=== PATIENT | female | born 1995 | race Caucasian/White ===

== ENCOUNTER 2018-12-24 01:39 | Inpatient (IN) | payer BC, OTHER ==
[~2018-12-24] VITALS: Ht 157.5 cm; Wt 61.0 kg
[~2018-12-24 01:39] MED LIST: LUTERA1 EACH PO; PRENATAL VITAM1 EACH PO
--- NOTE | 2018-12-24 08:36 | PR ---
[facility] [address] [place], [place] [address] Signed Progress Notes IP Datetime Report Generated by CPChristopher: 12/24/2018 08:35 PROGRESS NOTES: [id number] Impression: Normal progression of labor; Non-reassuring heart rate Procedures: Intrauterine Pressure Catheter; Scalp Electrode; Amnio Infusion Other Plans: continue close observation Informed Consent Obtain: Vaginal Delivery; Risks, Benefits and Alternatives Discussed VITAL SIGNS: [id number] Vital Signs: Reviewed; Within Normal Limits EXAM: [id number] Dilatation: 5.0 Effacement: 90 Station: -2 Uterine Contractions: q 3 min MEMBRANES: [id number] Membrane Status: Ruptured Amniotic Fluid Color: Clear Comments: Recurrent variables. No evidence of cord prolapse. Will place IUPC and begin amnioinfusion. Fetus A: [id number] FHR Baseline: 120 Variability: Minimal - Undetectable to <5bpm Accelerations: 15X15 Decelerations: Variable FHR Category: Category II Presentation: Vertex Comments on Fetus A: recurrent variables but with accels present Fetus B: [id number] Signing Physician: Lori Jaime MD Copies: ~ *Electronically Signed* 12/24/18 0835 LORI JAIME MD PATIENT NAME: CHELSIE RUBALCAVA PROGRESS NOTE DATE OF : [birth year] PHYSICIAN: LORI JAIME MD RPT #: [id number] REPORT IS CONFIDENTIAL AND NOT TO BE RELEASED WITHOUT AUTHORIZATION
--- NOTE | 2018-12-24 09:47 | PR ---
[facility] [address] [facility] [place], [place] [address] Signed Progress Notes IP Datetime Report Generated by CPN: 12/24/2018 09:47 PROGRESS NOTES: [id number] Impression: Normal progression of labor; Reassuring heart rate Procedures: Sterile Vag Exam Plan: Augmentation Other Plans: continue close observation Informed Consent Obtain: Vaginal Delivery; Risks, Benefits and Alternatives Discussed VITAL SIGNS: [id number] Vital Signs: Reviewed; Within Normal Limits EXAM: [id number] Dilatation: 6.0 Effacement: 90 Station: -2 Uterine Contractions: irregular MEMBRANES: [id number] Membrane Status: Ruptured Amniotic Fluid Color: Clear Comments: Good response to subq terb and amnioinfusion but contractions very minimal. Will restart low dose pitocin. Fetus A: [id number] FHR Baseline: 130 Variability: Moderate 6-25bpm Accelerations: 15X15 Decelerations: Variable FHR Category: Category II Presentation: Vertex Comments on Fetus A: good variability and accels Fetus B: [id number] Signing Physician: Lori Jaime MD Copies: ~ *Electronically Signed* 12/24/18 0947 LORI JAIME MD PATIENT NAME: CHELSIE RUBALCAVA PROGRESS NOTE DATE OF : [birth year] PHYSICIAN: LORI JAIME MD RPT #: [id number] REPORT IS CONFIDENTIAL AND NOT TO BE RELEASED WITHOUT AUTHORIZATION
--- NOTE | 2018-12-24 10:44 | PR ---
[facility] [address] [facility] [place], [place] [address] Signed Progress Notes IP Datetime Report Generated by CPN: 12/24/2018 10:44 PROGRESS NOTES: [id number] Impression: Normal progression of labor; Reassuring heart rate Procedures: Sterile Vag Exam Plan: Continue present management Other Plans: continue close observation Informed Consent Obtain: Vaginal Delivery; Risks, Benefits and Alternatives Discussed VITAL SIGNS: [id number] Vital Signs: Reviewed EXAM: [id number] Dilatation: 8.0 Effacement: 90 Station: -2 Uterine Contractions: q 2 to 4 min MEMBRANES: [id number] Membrane Status: Ruptured Amniotic Fluid Color: Clear Comments: Progressing. Good variability and accels though with variable decels. I do feel baby has adequate reserve at this time. Fetus A: [id number] FHR Baseline: 130 Variability: Moderate 6-25bpm Accelerations: 15X15 Decelerations: Variable FHR Category: Category II Presentation: Vertex Comments on Fetus A: occ variable Fetus B: [id number] Signing Physician: Lori Jaime MD Copies: ~ *Electronically Signed* 12/24/18 1044 LORI JAIME MD PATIENT NAME: CHELSIE RUBALCAVA PROGRESS NOTE DATE OF : [birth year] PHYSICIAN: LORI JAIME MD RPT #: [id number] REPORT IS CONFIDENTIAL AND NOT TO BE RELEASED WITHOUT AUTHORIZATION
--- NOTE | 2018-12-24 11:32 | PR ---
[facility] [address] [facility] [place], [place] [address] Signed Progress Notes IP Datetime Report Generated by CPN: 12/24/2018 11:31 PROGRESS NOTES: [id number] Impression: Normal progression of labor Procedures: Scalp Electrode; Sterile Vag Exam Plan: Continue present management Other Plans: continue close observation Informed Consent Obtain: Vaginal Delivery; Risks, Benefits and Alternatives Discussed VITAL SIGNS: [id number] Vital Signs: Reviewed; Within Normal Limits EXAM: [id number] Dilatation: 8.0 Effacement: 90 Station: -1 Uterine Contractions: q 2-4 min MEMBRANES: [id number] Membrane Status: Ruptured Amniotic Fluid Color: Clear Comments: Doing well. FSE replaced as the previous one has had quite a bit of static. Will continue. Fetus A: [id number] FHR Baseline: 120 Variability: Moderate 6-25bpm Accelerations: 15X15 Decelerations: Variable FHR Category: Category II Presentation: Vertex Comments on Fetus A: good variability and accels Fetus B: [id number] Signing Physician: Lori Jaime MD Copies: ~ *Electronically Signed* 12/24/18 1131 LORI JAIME MD PATIENT NAME: CHELSIE RUBALCAVA PROGRESS NOTE DATE OF : [birth year] PHYSICIAN: LORI JAIME MD RPT #: [id number] REPORT IS CONFIDENTIAL AND NOT TO BE RELEASED WITHOUT AUTHORIZATION
--- NOTE | 2018-12-25 07:29 | PR ---
[facility] [address] [facility] [place], [place] [address] Signed PP Progress Notes Datetime Report Generated by CPN: 12/25/2018 07:29 SUBJECTIVE: [id number] Pain: Within normal limits Pain Comments: Murphy just removed. No void yet. Vital Signs: [id number] Vital Signs: Reviewed; Within Normal Limits EXAM: [id number] Cardiovascular: Not Done Respiratory: Not Done Abdomen/Uterus: Abnormal Lochia: Normal Vulva/Perineum: Normal Breasts: Not Done CVA Tenderness: Not Done Extremities: Normal Incision: Not Applicable Progress: Normal Exam Comments: Fundus firm, NT @ U-2. Labs still pending IMPRESSION/PLAN/PROCEDURES: [id number] Impression: Normal progression Plan: Continue present management Procedures: None Progress Notes: Doing well. Will probably D/C home tomorrow am. Signing Physician: Lori Jaime MD Copies: ~ *Electronically Signed* 12/25/18 0729 LORI JAIME MD PATIENT NAME: CHELSIE RUBALCAVA PROGRESS NOTE DATE OF : [birth year] PHYSICIAN: LORI JAIME MD RPT #: [id number] REPORT IS CONFIDENTIAL AND NOT TO BE RELEASED WITHOUT AUTHORIZATION
--- NOTE | 2018-12-26 08:14 | PR ---
[facility] [address] [facility] [place], [place] [address] Signed PP Progress Notes Datetime Report Generated by CPN: 12/26/2018 08:14 SUBJECTIVE: [id number] Pain: Within normal limits Pain Comments: Murphy just removed. No void yet. Vital Signs: [id number] Vital Signs: Reviewed; Within Normal Limits EXAM: [id number] Cardiovascular: Not Done Respiratory: Not Done Abdomen/Uterus: Abnormal Lochia: Normal Vulva/Perineum: Normal Breasts: Not Done CVA Tenderness: Not Done Extremities: Normal Incision: Not Applicable Progress: Normal Exam Comments: Fundus firm, NT @ U-2. H/H 10.7/30.5, WBC 11.7, plat 151k IMPRESSION/PLAN/PROCEDURES: [id number] Impression: Normal progression Plan: Discharge Procedures: None Progress Notes: Doing well. She is ready for D/C. Signing Physician: Lori Jaime MD Copies: ~ *Electronically Signed* 12/26/1814 LORI JAIME MD PATIENT NAME: CHELSIE RUBALCAVA PROGRESS NOTE DATE OF : [birth year] PHYSICIAN: LORI JAIME MD RPT #: [id number] REPORT IS CONFIDENTIAL AND NOT TO BE RELEASED WITHOUT AUTHORIZATION
== END 2018-12-26 11:25 | disposition home or self-care (01) | DRG 806 ==
LOC: FBCO 01:39 → FBC 02:14
PROVIDERS: ADMIT Obstetrics & Gynecology
PROC: 10E0XZZ Delivery of Products of Conception, External Approach (ICD-10-PCS; principal; 2018-12-24)
PROC: 0KQM0ZZ Repair Perineum Muscle, Open Approach (ICD-10-PCS; 2018-12-24)
PROC: 10H07YZ Insertion of Other Device into Products of Conception, Via Natural or Artificial Opening (ICD-10-PCS; 2018-12-24)
PROC: 3E0E7GC Introduction of Other Therapeutic Substance into Products of Conception, Via Natural or Artificial Opening (ICD-10-PCS; 2018-12-24)
PROC: 00HU33Z Insertion of Infusion Device into Spinal Canal, Percutaneous Approach (ICD-10-PCS; 2018-12-24)
PROC: 3E0R3BZ Introduction of Anesthetic Agent into Spinal Canal, Percutaneous Approach (ICD-10-PCS; 2018-12-24)
DX: O42.92 Full-term premature rupture of membranes, unspecified as to length of time between rupture and onset of labor (principal); O70.20 Third degree perineal laceration during delivery, unspecified; Z37.0 Single live birth; Z3A.38 38 weeks gestation of pregnancy; O76 Abnormality in fetal heart rate and rhythm complicating labor and delivery; O69.82X0 Labor and delivery complicated by other cord entanglement, without compression, not applicable or unspecified
CPT/HCPCS: 36415; 82803; 85027; J2590; J3105; J7030; J7120

== ENCOUNTER 2022-03-17 19:19 | Inpatient (IN) | payer BC, OTHER ==
[~2022-03-17] VITALS: Ht 157.5 cm; Wt 64.4 kg
--- NOTE | 2022-03-18 11:09 | PR ---
[facility] [address] [facility] [place], [place] [address] Signed PP Progress Notes Datetime Report Generated by CPN: 03/18/2022 11:09 SUBJECTIVE: [id number] Pain: Within Normal Limits Vital Signs: [id number] Vital Signs: Reviewed; Within Normal Limits EXAM: Ongoing Cardiovascular: Not Done Respiratory: Not Done Abdomen/Uterus: Abnormal Lochia: Normal Vulva/Perineum: Not Done Breasts: Not Done CVA Tenderness: Not Done Extremities: Normal Incision: Not Applicable Progress: Normal Exam Comments: Fundus firm, NT @ U-2. H/H 11.4/33.7, WBC 12.7, plat 187k IMPRESSION/PLAN/PROCEDURES: [id number] Impression: Normal Progression Plan: Discharge Procedures: None Progress Notes: Doing well. She desires discharge later today. Signing Physician: Lori Jaime MD Copies: ~ *Electronically Signed* 03/18/22 1109 LORI JAIME MD PATIENT NAME: CHELSIE TANNER PROGRESS NOTE DATE OF : [birth year] PHYSICIAN: LORI JAIME MD RPT #: [id number] REPORT IS CONFIDENTIAL AND NOT TO BE RELEASED WITHOUT AUTHORIZATION
== END 2022-03-18 20:55 | disposition home or self-care (01) | DRG 807 ==
LOC: FBCO 19:19 → FBC 19:31
PROVIDERS: ADMIT Obstetrics & Gynecology; ATTEND Obstetrics & Gynecology
PROC: 10E0XZZ Delivery of Products of Conception, External Approach (ICD-10-PCS; principal; 2022-03-17)
PROC: 0KQM0ZZ Repair Perineum Muscle, Open Approach (ICD-10-PCS; 2022-03-17)
DX: O62.3 Precipitate labor (principal); Z37.0 Single live birth; Z3A.39 39 weeks gestation of pregnancy; Z20.822 Contact with and (suspected) exposure to COVID-19; O70.1 Second degree perineal laceration during delivery
CPT/HCPCS: 36415; 85027; 86850; 86900; 86901; 87502; A9270; J2590; U0003

== ENCOUNTER 2022-04-14 20:34 | Observation (INO) | payer BC, OTHER ==
[~2022-04-14] VITALS: Ht 152.4 cm; Wt 64.4 kg
--- NOTE | 2022-04-15 01:03 | NUR ---
pt ARRIVED TO [facility] AT THIS TIME, VERBAL REPORT RECEIVED FROM SPIRAL WINDER KHUSHI. pt RESTING IN BED, ORIENTED TO ROOM AND CALL LIGHT IN REACH. SO KLAUS IN ROOM. RUSS, HAND INSERTER OPERATOR COMPELTING ADMISSION.
--- NOTE | 2022-04-15 01:11 | NUR ---
04/15/22 0111 Kimbrough,Karo Chen 0025: PATIENT AWAKE. DENIES PAIN. 0035: PATIENT DOZING OFF AND ON. EASILY AWAKENS TO VOICE. DENIES PAIN. 0049: LAB HERE TO DRAW LABS. 0103: PATIENT TRANSFERRED TO M/S ROOM 109. PATIENT TOLERATED TRANSFER WELL. REPORT GIVEN TO M/S RN.
--- NOTE | 2022-04-15 01:20 | NUR ---
ASSESSMENT COMPLETE, SCHEDULED MEDS GIVEN (SEE EMAR). IV SITE WNL, IV FLUIDS INFUSING DIRECTED. STRINGER BULB IN PLACE TO VAGINA/UTERUS PER REPORT FROM OPEN HEARTH HELPER LISA. VAGINAL PACKING AND NAHED PAD IN PLACE, DR BAILEY IN ROOM AND TALKING TO pt AND pt's SPOUSE. NO VAGINAL BLEEDING NOTED TO NAHED PAD, WILL MONITOR. SCD'S IN PLACE. pt REPORTS SOME NUMBNESS AND TINGLING TO BLE D/T RESOLVING SPINAL.
--- NOTE | 2022-04-15 02:17 | NUR ---
POST-OP VSS, CPOX REMAINS IN PLACE. pt RESTING IN BED WITH EYES CLOSED, RR EVEN AND UNLABORED. SCD'S IN PLACE. NO NEEDS OR CONCERNS, pt AWOKE EASILY TO VOICE.
--- NOTE | 2022-04-15 03:13 | NUR ---
pt DUE FOR POST-OP VS. pt CURRENTLY PUMPING, pt REPORTS BEING ALMOST DONE. pt TO CALL WHEN DONE. CALL LIGHT IN REACH.
--- NOTE | 2022-04-15 03:30 | NUR ---
in room for post-op vs, vss. scd's in place, no needs or concerns verbalized. call light in reach.
--- NOTE | 2022-04-15 04:35 | NUR ---
LAST SET POST-OP VS VSS, pt DENEIS NEED TO VOID. SCD'S IN PLACE, IV SITE WNL. IV FLUIDS INFUSING DIRECTED. NO NEEDS OR CONCERNS VERBALIZED, CALL LIGHT IN REACH.
--- NOTE | 2022-04-15 06:03 | NUR ---
dr yates recently in to see pt, pt resting in bed. vss and i&o's complete. scd's in place. pt up sba to void, 300mls output noted. focused assessment to juliane area. scant vaginal bleeding noted, new juliane pad in place. no additional needs, iv site wnl and scheduled iv abx infusing as directed.
--- NOTE | 2022-04-15 06:49 | NUR ---
pt REPORTS 3/10 PAIN, PRN MOTRIN GIVEN-SEE EMAR. NO ADDITIONAL NEEDS. CALL LIGHT IN REACH.
--- NOTE | 2022-04-15 08:10 | NUR ---
Spoke with pt and she denies complaints or issues. Lives in a house with her children and spouse in [place]. No issues getting in or out of home, no need for DME. Spouse arrives and is supportive and will assist pt as needed. Pt currently has canchola in place for tamponade. Pt states Dr. Jaime will return today and discuss her options of discharge.
--- NOTE | 2022-04-15 11:20 | NUR ---
Patient resting in bed, no distress at this time. Patient reports tolerable pain. Murphy intact at this time. Pt has scant vaginal bleeding. IV fluids infusing at this time. No current needs, personal supplies and call light within reach.
--- NOTE | 2022-04-15 12:23 | OR ---
[facility] [place] [facility] [address] [facility] [place], [place] [address] Signed DATE OF OPERATION: 04/14/2022 SURGEON: Lori Jaime MD CHIEF OF HARBOR PATROL: JOCELYN Kimbrough, DO PREOPERATIVE DIAGNOSES: Delayed hemorrhage, abnormal uterine bleeding. POSTOPERATIVE DIAGNOSES: Delayed hemorrhage, abnormal uterine bleeding. PROCEDURES: Dilation and curettage and Murphy balloon tamponade of the uterus. ANESTHESIA: Spinal with IV sedation. ESTIMATED BLOOD LOSS: 200 mL. DRAINS: Intrauterine Murphy catheter. PACKS: Vaginal. INDICATIONS AND FINDINGS: The patient is a 26-year-old female, 2, para 2, who is status post a vaginal delivery four weeks ago, who was seen in the office earlier today and had a completely normal exam with minimal bleeding. She had a Mirena placed per her request, which went in easily without any abnormal bleeding. However, she presented later in the day with very heavy vaginal bleeding. The IUD was in the very low in the uterus and was removed easily. Her bleeding did seem to decrease at that point. However, later in the evening her bleeding again increased and she was advised to present to the ED for further evaluation. Her vital signs were stable as were her H and H. She was continuing to have heavy bleeding, however. Ultrasound did show a slightly thickened endometrial stripe. There was no abnormal amount of fluid in the cul de sac. Because of the continued abnormal bleeding, further evaluation was felt necessary. At the time of Electronically Signed By: LORI JAIME MD 04/15/22 1223 PATIENT NAME: CHELSIE TANNER OPERATIVE REPORT DATE OF : [birth year] REPORT #: [id number] PHYSICIAN: LORI JAIME MD PCP: LORI JAIME MD REPORT IS CONFIDENTIAL AND NOT TO BE RELEASED WITHOUT AUTHORIZATION [facility] [place] [facility] [address] [place], [place] [address] Signed surgery, exam under anesthesia revealed a cervix that was widely dilated. There were multiple clots coming through the cervix into the vagina. There was a tiny bit of tissue which may be possible retained placenta. There was no obvious source for the bleeding and and no obvious perforation. DESCRIPTION OF PROCEDURE: The patient was prepped and draped in the dorsal lithotomy position. An open-sided speculum was placed and the anterior lip of the cervix was visualized and grasped with a single-tooth tenaculum. Multiple clots were removed from the uterine cavity. Sharp curettage was done very gently with removal of a tiny bit of tissue which may have a small amount of placenta within it. Most of what was removed, however, was simply clot. She continued to have fairly heavy bleeding and sutures were placed at 3, 6, 9 and 12 o'clock consisting of [id number] of 0 chromic in an effort to slow the bleeding. However, this was not successful and she continued to have ongoing bleeding. Because of this, it was felt Murphy tamponade may be successful in controlling her bleeding. A Murphy catheter was placed into the uterine cavity with a 30 mL balloon. This was inflated to 40 mL. Following this, pressure was applied to the cervix and the patient was observed over the next 10 minutes for evaluation of the bleeding. At that point, there was very minimal blood coming through the cervix. There was no blood coming from the actual Murphy catheter, either. At this point, it was felt she was stable and the Murphy catheter was effective in managing her bleeding without further intervention. The vagina was packed with Premarin coated gauze after removal of the speculum. The patient was stable throughout the case. All sponge and needle counts were correct. Lori Jaime MD PJW/MODL /[id number] cc: JOCELYN Kimbrough DO Electronically Signed By: LORI JAIME MD 04/15/22 1223 PATIENT NAME: CHELSIE TANNER OPERATIVE REPORT DATE OF : [birth year] REPORT #: [id number] PHYSICIAN: LORI JAIME MD PCP: LORI JAIME MD REPORT IS CONFIDENTIAL AND NOT TO BE RELEASED WITHOUT AUTHORIZATION [address] [place] [address] Signed Copies: ~ Electronically Signed By: LORI JAIME MD 04/15/22 1223 PATIENT NAME: CHELSIE TANNER OPERATIVE REPORT DATE OF : [birth year] REPORT #: [id number] PHYSICIAN: LORI JAIME MD PCP: LORI JAIME MD REPORT IS CONFIDENTIAL AND NOT TO BE RELEASED WITHOUT AUTHORIZATION
--- NOTE | 2022-04-15 14:10 | NUR ---
Verbal order obtained from Dr. Jaime to remove 5cc's from canchola balloon at this time.
--- NOTE | 2022-04-15 14:25 | NUR ---
5mL saline removed from canchola balloon per provider order. Scant blood noted in canchola bag. Admin Ibuprofen 600mg po at this time. Patient has no needs, personal supplies and call light within reach. at bedside.
--- NOTE | 2022-04-15 16:10 | NUR ---
MIKHAIL from Dr. Jaime to remove 10ml saline from canchola catheter balloon. Patient tolerated removal well. Scant blood noted in canchola cath bag. Patient reports she has no needs, personal supplies and call light within reach.
--- NOTE | 2022-04-15 19:05 | NUR ---
report from shakira rn, interuterine canchola wuth minmal clots and drainage noted. pt pumped breast milk x2 and rn took to the fridge and labeled. call light in reach.
--- NOTE | 2022-04-15 20:22 | NUR ---
refilled water and 400 ml of urine counted and dumped. pt eating pizza with in room, discussed plan of care - declined colace tonight, denies needs at this time.
--- NOTE | 2022-04-15 20:30 | NUR ---
IN TO GET VS, NO FURTHER NEEDS AT THIS TIME
--- NOTE | 2022-04-16 05:40 | NUR ---
pt awaken for vitals, i/o and iv abx. prn motrin given - no change in interuterine canchola - denies more than scant juliane bleeding.
--- NOTE | 2022-04-16 07:40 | NUR ---
checked on pt. asked if needed anything pt said no just milk put in fridge. pt milk labeled with sticker and put in fridge. call light within reach no further tasks at this time
--- NOTE | 2022-04-16 07:52 | NUR ---
Dr. Jaime in to see patient, she removed 10ml saline from canchola balloon. This RN drained 20ml blood from canchola bag at this time. Patient reports tolerable pain. No current needs, personal supplies and call light within reach.
--- NOTE | 2022-04-16 16:02 | PATH ---
[facility] [address] [place], [place] [address] Signed SPECIMEN(S): A POSS RETAINED PLACENTA SPECIMEN SOURCE: A. POSS RETAINED PLACENTA CLINICAL HISTORY: bleeding. FINAL PATHOLOGIC DIAGNOSIS: Possible retained placenta: - Fragments of proliferative endometrium, negative for hyperplasia or atypia. - Focal endometrial scar with reactive features. - Negative for evidence of chorionic villi. - Benign ectocervix and endocervix. - Abundant hemorrhagic debris. COMMENT: The endometrial fragments show areas of scar and reactive features which could be seen in association with an implantation site, however, there is no evidence of chorionic villi or residual placenta on these sections and clinical correlation will be required to determine whether there is any additional retained placenta. JVR:alex:C2NR MICROSCOPIC EXAMINATION: Histologic sections of all submitted blocks are examined by light microscopy. These findings, together with the gross examination, support the pathologic diagnosis. GROSS DESCRIPTION: The specimen, labeled "TL, A," and designated on the requisition "poss retained placenta," is received in formalin and consists of a copious amount of dark red to brown clotted blood and a scant amount of navarro, rubbery tissue, 9.8 x 7.7 x 2.2 cm in aggregate. parts or an embryo are not grossly identified. Grossly definitive villus or placental tissue is not identified. [employer] sections are submitted in four cassettes (A1-A4). AI (under the direct supervision of a pathologist) The Gross Description was prepared using a voice recognition system. The report was reviewed for accuracy; however, sound-alike word errors, addition and/or deletions may occur. If there is any PATIENT NAME: CHELSIE TANNER PATHOLOGY DATE OF : [birth year] REPORT #: [id number] PHYSICIAN: PERCY VICTOR PCP: SUDHA BAILEY MD REPORT IS CONFIDENTIAL AND NOT TO BE RELEASED WITHOUT AUTHORIZATION [facility] [address] [facility] [place], [place] [address] Signed question about this report, please contact Client Services. PERFORMING LABORATORY: The technical component was performed by [facility], [address] [place] [address] (CLIA# [id number]). Professional interpretation was performed by [facility], [address] [place] [id number] (CLIA#: [id number]). Diagnostician: Endy Colin MD Pathologist Electronically Signed 04/16/2022 Copies: ~ PATIENT NAME: CHELSIE TANNER PATHOLOGY DATE OF : [birth year] REPORT #: [id number] PHYSICIAN: PERCY VICTOR PCP: SUDHA BAILEY MD REPORT IS CONFIDENTIAL AND NOT TO BE RELEASED WITHOUT AUTHORIZATION
== END 2022-04-16 12:10 | disposition home or self-care (01) ==
LOC: ED 20:34 → MS 20:36 → ED 22:51 → MS 04-16 12:10
PROVIDERS: ADMIT Obstetrics & Gynecology; ATTEND Obstetrics & Gynecology
PROC: 10D17ZZ Extraction of Products of Conception, Retained, Via Natural or Artificial Opening (ICD-10-PCS; principal; 2022-04-14 22:12)
DX: O72.2 Delayed and secondary postpartum hemorrhage (principal); Z20.822 Contact with and (suspected) exposure to COVID-19
CPT/HCPCS: 36415; 76830; 76856; 80048; 80053; 81001; 84703; 85025; 85384; 85610; 85730; 86850; 86900; 86901; 87088; 96361; 96372; 96374; 96375; 96376; 99285-25; A9270; G0378; J0131; J0690; J1644; J2001; J2250; J2405; J7030; J7121; U0003